=== PATIENT | female | born 2000 | race Caucasian/White ===

== ENCOUNTER 2023-12-18 18:47 | Emergency (ER) | payer OTHER, SELFPAY ==
--- NOTE | 2023-12-18 18:53 | ED.GENADULT ---
HPI - General Adult General Chief complaint: Dizziness Stated complaint: DIZZY/HEADACHE/VISION PROBLEMS Time Seen by Provider: 12/18/23 18:53 Source: patient Mode of arrival: ambulatory Limitations: no limitations History of Present Illness HPI narrative: 23-year-old female patient presents to the [facility] with complaints of headache and dizziness for the past 3 days. Patient states it came on suddenly. Patient states that the dizziness is better when she lays down but mostly when she is moving around she notices the dizziness. Denies any fevers, body aches or chills. Denies nausea, vomiting or diarrhea. Denies any weakness on 1 side of body or the other. Denies any recent head trauma. Patient states she has been taking some ibuprofen for her headache and denies any history of migraines. Related Data Home Medications Medication Instructions Recorded Confirmed norethindrone 1 mg-ethinyl 1 tablet PO DAILY 12/18/23 12/18/23 estradiol 10 mcg (24)-iron 10 mcg(2) tablet (Lo Loestrin Fe) Allergies Allergy/AdvReac Type Severity Reaction Status Date / Time Penicillins Allergy Rash Verified 12/18/23 18:55 Review of Systems Review of Systems: CONSTITUTIONAL: Denies fever, chills, or sweats. EYES: Denies visual changes, redness, or discharge. ENT: Denies rhinorrhea, congestion, sore throat, or otalgia. CARDIOVASCULAR: Denies chest pain, palpitations, or edema. RESPIRATORY: Denies cough or dyspnea. GASTROINTESTINAL: Denies abdominal pain, nausea, vomiting, or diarrhea. GENITOURINARY: Denies dysuria or hematuria. SKIN: Denies rash or itching. MUSCULOSKELETAL: Denies back pain, joint pain, or myalgia. NEUROLOGIC: Positive headache, denies numbness, or weakness. positive dizziness PSYCHIATRIC: Denies anxiety or depression. [facility] Past Medical History Medical History Ear infection Comments At the time of my signature I agree with nursing past medical history, surgical, social, and family history. There is no relevant family history pertinent to the presenting complaint. Exam Narrative: GENERAL: Well-appearing, well-nourished, and in no acute distress. HEAD: Normocephalic, atraumatic. EYES: PERRLA and EOMI. ENT: Nares clear, no rhinorrhea or epistaxis. Mucous membranes moist. bilateral TMs are clear no erythema foreign bodies the canal. Posterior pharynx with no erythema, tonsillar enlargement, exudates or lesions present. NECK: Supple. No lymphadenopathy CHEST: Clear to auscultation. No respiratory distress. HEART: Regular rate and rhythm. No murmur heard. Normal peripheral pulses. ABDOMEN: Soft, nontender, nondistended, normal active bowel sounds. EXTREMITIES: Normal range of motion. No edema. SKIN: Warm, dry, no rash. NEURO: Alert and oriented x4, GCS 15. Cranial nerves II through XII grossly intact. No focal neurological deficits. Normal muscle strength and tone. Normal deep tendon reflexes. Negative Babinski, normal finger to nose coordination he had normal heel to hannah glide. Speech is clear. Normal gait. Negative Romberg and no pronator drift. Course Course Level of Care: Express Care Visit Vital Signs Vital signs: Vital Signs Temperature 37.2 C 12/18/23 19:00 Pulse Rate 82 12/18/23 19:00 Respiratory Rate 16 12/18/23 19:00 Blood Pressure 116/76 12/18/23 19:00 Pulse Oximetry 100 12/18/23 19:00 Temperature 37.2 C 12/18/23 19:00 Pulse Rate 82 12/18/23 19:00 Respiratory Rate 16 12/18/23 19:00 Blood Pressure 116/76 12/18/23 19:00 Pulse Oximetry 100 12/18/23 19:00 Vital signs reviewed. Medical Decision Making MDM Narrative Medical decision making narrative: Discussed with patient I do believe she most likely has vertigo. Instructions are given to patient on the Tali maneuver as well as prescription for meclizine to help with the dizziness. Discussed with patient that if symptoms worsens s
[2023-12-18 19:00] VITALS: BP 116/76; PULSE 82; RESP 16; TEMP 37.2; O2SAT 100
== END 2023-12-18 19:18 | disposition home or self-care (01) ==
PROVIDERS: Emergency Provider Nurse Practitioner Family
DX: H81.10 Benign paroxysmal vertigo, unspecified ear (principal)
CPT/HCPCS: 99203; G0463